=== PATIENT | female | born 1935 | race Caucasian/White ===

== ENCOUNTER 2020-03-21 13:21 | Emergency (ER) | payer OTHER, MEDICARE | END 2020-03-21 13:41 | disposition home or self-care (01) | LOC: JVIRT 13:21 | DX: Z03.818 Encounter for observation for suspected exposure to other biological agents ruled out (principal) | CPT/HCPCS: C9803; Q3014-GT; U0003 ==

== ENCOUNTER 2023-08-30 16:57 | Emergency (ER) | payer OTHER, MEDICARE ==
[2023-08-30 17:18] VITALS: BP 151/64; PULSE 68; RESP 18; TEMP 98; BMI 20.3
[2023-08-30 18:41] LABS: BASO % 1.8 % (0-2.0); EOS % 7.9 % (0-4.5); HEMATOCRIT 24.6 % (32.4-45.2); HEMOGLOBIN 7.8 GM/dL (10.7-15.3); LYMPH % 13.2 % (8-40); MCH 26.3 pg (25.7-33.7); MCHC 31.7 g/dl (32.0-36.0); MEAN CELL VOLUME 83.1 fl (80-96); MEAN PLT VOLUME 6.2 fl (7.5-11.1); MONO % 13.8 % (3.8-10.2); NEUT % 63.3 % (42.8-82.8); PLATELET COUNT 371 10^3/uL (134-434); RBC 2.95 M/mm3 (3.60-5.2); RDW 23.4 % (11.6-15.6); WHITE BLOOD COUNT 5.1 K/mm3 (4.0-10.0)
[2023-08-30 18:54] LABS: CHLORIDE 99 mmol/L (98-107); POTASSIUM 4.9 mmol/L (3.5-5.1); SODIUM 129 mmol/L (136-145)
[2023-08-30 18:56] LABS: ALBUMIN 3.3 g/dl (3.4-5.0); ANION GAP 2 mmol/L (4-13); BLOOD UREA NITROGEN 15.8 mg/dL (7-18); CALCIUM 8.2 mg/dL (8.5-10.1); CO2 28 mmol/L (21-32); GLUCOSE,RANDOM 101 mg/dL (74-106)
[2023-08-30 18:59] LABS: CREATININE 0.6 mg/dL (0.55-1.3); SGPT/ALT 34 U/L (13-61)
[2023-08-30 19:00] LABS: SGOT/AST 28 U/L (15-37)
[2023-08-30 19:01] LABS: BILIRUBIN,TOTAL 0.2 mg/dL (0.2-1)
[2023-08-30 19:02] LABS: ALK PHOS 54 U/L (45-117)
[2023-08-30 20:04] LABS: ANISOCYTOSIS 2+; MACROCYTOSIS 1+
[2023-08-30] MEDS: DALBAVANCIN HCL 1,500 MG in DEXTROSE 5%-WATER - 500 ML IVPB ONE (20:08)
== END 2023-08-30 21:21 | disposition home or self-care (01) ==
LOC: JER 16:57
DX: M79.89 Other specified soft tissue disorders (principal); D64.9 Anemia, unspecified; L03.116 Cellulitis of left lower limb
CPT/HCPCS: 36415; 73562-TC-LT-FY; 73610-TC-LT-FY; 73630-TC-LT; 80053; 85025; 86140; 93971-TC; 99285-25; J0875

== ENCOUNTER 2023-09-05 14:33 | Observation (INO) | payer OTHER, MEDICARE ==
[2023-09-05 15:40] LABS: HEMATOCRIT 25.6 % (32.4-45.2); HEMOGLOBIN 7.7 G/dL (10.7-15.3); MCH 25.3 pg (25.7-33.7); MCHC 30.2 g/dl (32.0-36.0); MEAN CELL VOLUME 83.7 fl (80-96); MEAN PLT VOLUME 7.5 fl (7.5-11.1); PLATELET COUNT 466.6 10^3/uL (134-434); RBC 3.06 10^6/uL (3.60-5.2); RDW 22.1 % (11.6-15.6); WHITE BLOOD COUNT 6.6 10^3/uL (4.0-10.8)
[2023-09-05 16:20] LABS: ALBUMIN 3.8 g/dl (3.4-5.0); BILIRUBIN,TOTAL 0.3 mg/dl (0.2-1); CALCIUM 8.1 mg/dl (8.5-10.1); CREATININE 0.7 mg/dl (0.6-1.3); POTASSIUM 4.3 mmol/L (3.5-5.1)
[2023-09-05 16:28] LABS: INR 0.87 (0.83-1.09)
[2023-09-05 16:31] LABS: ACTIVATED PTT 30.8 SECONDS (25.2-36.5)
[2023-09-05 17:38] LABS: PLATELET ESTIMATE ADEQUATE
[2023-09-05 21:15] VITALS: BMI 21.9
[2023-09-05] MEDS: ALBUTEROL SO4 HFA INHALER IH PRN (23:33)
[2023-09-06] MEDS: LORazepam 0.5 MG TABLET PO PRN (03:46)
[2023-09-06] MEDS: ACETAMINOPHEN 325 MG TABLET (FP) PO PRN (04:16)
[2023-09-06 08:07] LABS: HEMATOCRIT 33.8 % (32.4-45.2); HEMOGLOBIN 10.5 G/dL (10.7-15.3); MCH 26.1 pg (25.7-33.7); MCHC 31.1 g/dl (32.0-36.0); MEAN CELL VOLUME 83.9 fl (80-96); MEAN PLT VOLUME 7.3 fl (7.5-11.1); PLATELET COUNT 377.9 10^3/uL (134-434); RBC 4.03 10^6/uL (3.60-5.2); RDW 20.2 % (11.6-15.6); WHITE BLOOD COUNT 6.2 10^3/uL (4.0-10.8)
[2023-09-06 09:06] LABS: CREATININE 0.7 mg/dl (0.6-1.3); POTASSIUM 4.4 mmol/L (3.5-5.1)
[2023-09-06] MEDS: TIOTROPIUM BROMIDE 2.5 MCG (SPIRIVA) RESPIMAT INHALER IH SCH (09:50)
[2023-09-06] MEDS: amLODIPine BESYLATE 2.5 MG TABLET (FP) PO SCH (09:50)
[2023-09-06 12:06] VITALS: BP 163/61; PULSE 88; RESP 18; TEMP 98.4
== END 2023-09-06 14:00 | disposition home or self-care (01) ==
LOC: FER 14:33 → FM/S 20:08
PROVIDERS: ADMIT Internal Medicine; ATTEND Family Medicine
DX: D50.9 Iron deficiency anemia, unspecified (principal); C34.90 Malignant neoplasm of unspecified part of unspecified bronchus or lung; J45.909 Unspecified asthma, uncomplicated; I10 Essential (primary) hypertension; E78.00 Pure hypercholesterolemia, unspecified; Z85.3 Personal history of malignant neoplasm of breast; E07.9 Disorder of thyroid, unspecified; Z87.891 Personal history of nicotine dependence
CPT/HCPCS: 36415; 36430; 80048; 80053; 85027; 85610; 85730; 86850; 86900; 86901; 86922; 99285-25; G0378; P9038; P9058

== ENCOUNTER 2023-12-10 10:03 | Emergency (ER) | payer OTHER, MEDICARE ==
[2023-12-10 10:11] VITALS: BP 161/68; PULSE 93; RESP 16; TEMP 98.5; BMI 22.3
[2023-12-10 12:31] LABS: PH,URINE 7.5 (5.0-8.0); URINE APPEARANCE CLEAR; URINE BILIRUBIN NEGATIVE (NEGATIVE); URINE COLOR YELLOW; URINE GLUCOSE (UA) NEGATIVE (NEGATIVE); URINE KETONE NEGATIVE (NEGATIVE); URINE LEUK ESTERASE NEGATIVE (NEGATIVE); URINE NITRITE NEGATIVE (NEGATIVE); URINE PROTEIN NEGATIVE (NEGATIVE); URINE UROBILINOGEN 0.2 mg/dL (0.2-1.0)
== END 2023-12-10 13:51 | disposition left against medical advice (07) ==
LOC: JER 10:03
DX: S09.90XA Unspecified injury of head, initial encounter (principal); W01.198A Fall on same level from slipping, tripping and stumbling with subsequent striking against other object, initial encounter
CPT/HCPCS: 70450-TC; 71045-TC-FY; 72125-TC; 72170-TC-FY; 81003; 87086; 93005; 93010; 99285-25